=== PATIENT | male | born 1975 | race Caucasian/White ===

== ENCOUNTER 2020-04-29 08:39 | Emergency (ER) | payer OTHER ==
[~2020-04-29] VITALS: Ht 175.3 cm; Wt 95.3 kg
[2020-04-29 08:41] VITALS: BP 122/60
[2020-04-29] MEDS ORDERED: SENNA-DOCUSATE1 EAC1 PO (09:31)
[2020-04-29] MEDS ORDERED: MEDROLDOSEPACK PO (09:31)
[2020-04-29] MEDS ORDERED: NORCO 5-325 TA1 EAC2 PO (09:31)
== END 2020-04-29 09:40 | disposition home or self-care (01) ==
LOC: ER 08:39
DX: G56.03 Carpal tunnel syndrome, bilateral upper limbs (principal); Z88.1 Allergy status to other antibiotic agents; Z88.8 Allergy status to other drugs, medicaments and biological substances